=== PATIENT | female | born 1980 | race Caucasian/White ===

== ENCOUNTER 2016-08-28 15:54 | Emergency (ER) | payer OTHER ==
[~2016-08-28] VITALS: Ht 162.6 cm; Wt 66.6 kg
[~2016-08-28 15:54] MED LIST: ALBU1AER9 INH; CPR/500 PO; CYCL10TA6 PO; FLAGYL PO; HYOS1TAB PO; KETO10TA PO; NORETAB3 PO; NORT25CA PO; PNT250 PO; RANI300T2 PO
[2016-08-28 15:59] VITALS: TEMP 36.8; Ht 162.6 cm; Wt 66.6 kg
[2016-08-28] MEDS ORDERED: ONDANSETRON INJ 2 MG/ML 2 ML VIAL IV STA (16:22)
[2016-08-28] MEDS ORDERED: SODIUM CHLORIDE 0.9% 1000ML 1,000 ML IV STA (16:22)
[2016-08-28] MEDS ORDERED: KETOROLAC TROMETHAMINE 30 MG/ML VIAL IV STA (16:22)
[2016-08-28] MEDS ORDERED: IMT50 PO (16:52)
[2016-08-28] MEDS ORDERED: [UNRECOGNIZED DRUG - CODE] PO (16:52)
[2016-08-28] MEDS ORDERED: NRT/25 PO (16:52)
[2016-08-28] MEDS ORDERED: ACET-1256 PO (16:58)
[2016-08-28] MEDS ORDERED: IBUP-103 PO (16:58)
--- NOTE | 2016-08-28 17:02 | EMERGENCY ROOM VISIT NOTE ---
History Report prepared by Ciara: Kathleen Rosario Under the Supervision of: Dr. Marvin Soto M.D. First contact with patient: 16:18 Chief Complaint: LEG PAIN,LEG INJURY Stated Complaint: LT LEG PAIN, MIGRAINE- PHYSICIAN REFERRED History of Present Illness The patient is a 36 year old female who presents to the Emergency Room with complaints of persistent left leg pain starting a few days ago. She describes it as a soreness to the back of her leg. She has worsening pain with palpation. She did not have any recent trauma or injuries. She has not worked out for the past week. She drove an hour a few days but otherwise denies any recent long trips. The patient was referred to the Emergency Room by her OB-RN TRANSFER and PCP for concerns about blood clots. 4 days ago, she started having generalized body aches to her entire lower body. She also complains of a headache occurring for the past 4 days. The headache is located to her entire head but it is worse on the right side. She feels as though her "eye balls are pushing out of her head. " She has worsening pain with exposure to light. She has been applying ice without relief. She has been switching control pills for the past 18 months for migraine headaches. She has been taking Tylenol for her pain without relief. She reports a loss of appetite. She is a current smoker. She denies nausea, vomiting, or any other complaints. Source of History: patient Onset: a few days ago Position: leg (right) Timing: other (persistent) Modifying Factors (Worsening): other (palpation) Modifying Factors (Relieving): tylenol (without relief) Associated Symptoms: + headache, No nausea, No vomiting Review of Systems See HPI for pertinent positives & negatives. A total of 10 systems reviewed and were otherwise negative. Past Medical & Surgical Medical Problems: (1) Anxiety (2) Bronchitis (3) Crohns disease (4) Depression (5) GERD (gastroesophageal reflux disease) (6) Ulcer Family History Cancer FH: heart disease Social History Smoking Status: Current Some Day Smoker Alcohol Use: occasionally Housing Status: lives with family Current/Historical Medications Scheduled Levonorgestrel-Ethinyl Estradi (Levonorgestrel/Ethinyl Es 0.15-0.03 &0.01 mg), 1 TAB PO DAILY Nortriptyline Hcl (Pamelor), 50 MG PO HS Scheduled PRN Acetaminophen (Tylenol), 1,000 MG PO Q6H PRN for Pain or Fever Ibuprofen Tab (Advil), 400 MG PO Q6H PRN for Pain or Fever Sumatriptan Succinate (Sumatriptan Succinate), 25 MG PO UD PRN for Migraine Allergies Coded Allergies: Penicillins (Verified Allergy, Unknown, 08/28/16) Tetracycline (Verified Adverse Reaction, Unknown, nausea, 08/28/16) Physical Exam Vital Signs Date Time Temp Pulse Resp B/P (MAP) Pulse Ox O2 Delivery O2 Flow Rate FiO2 08/28/16 18:23 78 20 121/84 98 Room Air 08/28/16 16:47 74 20 134/91 99 Room Air 08/28/16 15:59 36.8 105 20 149/79 94 Room Air Physical Exam GENERAL: Patient is in no acute distress. HEENT: No acute trauma, normocephalic atraumatic, mucous membranes moist, no nasal congestion, no scleral icterus. Pupils are equal, round, and reactive to light. NECK: No stridor, no adenopathy, no meningismus, trachea is midline. LUNGS: Clear to auscultation bilaterally, no wheeze, no rhonchi, breath sounds equal. HEART: Without murmurs gallops or rubs, regular rate and rhythm. ABDOMEN: Soft, nontender, bowel sounds positive, no hernias, no peritonitis. EXTREMITIES: No cyanosis or edema, full range of motion of all the joints without pain or difficulty, no signs for acute trauma. NEUROLOGIC: Oriented x 3, no acute motor or sensory deficits, no focal weakness. No cerebellar dysfunction or pronator drift. SKIN: No rash, no jaundice, no diaphoresis. Medical Decision & Procedures ER Provider Diagnostic Interpretation: US results as stated below per my review and radiologist interpretation: LEFT LOWER EXTREMITY VENOUS DOPPLER CLINICAL HISTORY: Left leg pain. On control pills. COMPARISON STUDY: Bilateral lower extremity venous Doppler September 10, 2007. TECHNIQUE: Sonography of the deep venous system of the left lower extremity was performed. Compression and augmentation were evaluated. FINDINGS: The common femoral, superficial femoral and popliteal veins were compressible. Augmentation was normal. Flow was shown within the deep calf vessels. IMPRESSION: No evidence of deep venous thrombus within the left lower extremity. Electronically signed by: Lang Jiang M.D. 08/28/2016 5:45 PM Dictated Date/Time: 08/28/2016 5:44 PM Medications Administered Medications (Trade) Dose Ordered Sig/Melchor Route Start Time Stop Time Status Last Admin Dose Admin Sodium Chloride 1,000 ml @ 999 mls/hr Q1H1M STAT IV 08/28/16 16:22 08/28/16 17:22 DC 08/28/16 16:22 999 MLS/HR Ketorolac Tromethamine (Toradol Inj) 30 mg NOW STAT IV 08/28/16 16:22 08/28/16 16:26 DC 08/28/16 16:22 30 MG Ondansetron HCl (Zofran Inj) 4 mg NOW STAT IV 08/28/16 16:22 08/28/16 16:26 DC 08/28/16 16:22 4 MG Dexamethasone Sodium Phosphate (Decadron Inj) 10 mg NOW ONCE IV 08/28/16 18:00 08/28/16 18:01 DC 08/28/16 18:19 10 MG ED Course 1618: The patient was evaluated in room C11B. A complete history and physical exam was performed. 1622: Zofran Inj 4 mg IV, Toradol Inj 30 mg IV, Sodium Chloride 1000 ml @ 999 mls/hr IV 1753: I reevaluated the patient who continues to complain of her headache behind her right eye. She will try new medications and her will pick her up. I updated the patient on her findings. 1800: Decadron Inj 10 mg IV 1821: Reevaluated the patient. Discussed results and discharge instructions: She verbalized understanding and agreement. The patient is ready for discharge. Medical Decision Differential diagnosis includes but is not limited to migraine headache, tension headache, dehydration, DVT, muscle strain. The patient presents with a migraine which is mostly right-sided. She has been dealing with these migraines for months and her doctors have been changing her medications, in particular her control pills. She developed some pain in her left posterior thigh and was sent here for evaluation for possible DVT. She has never had a DVT. Left leg ultrasound shows no DVT, on exam, there was no significant edema to the left lower extremity. No cellulitis noted. The patient had a nonfocal neurologic exam, she was not febrile. She was not toxic, there was no meningismus. The patient received IV saline, IV Toradol. She felt better but still had some headache. She was given IV Decadron. The patient does not want anything further for pain. She will be driving herself home. The patient will follow with her family doctor and possibly neurology for her persistent headaches. She was reassured by the negative ultrasound. The left thigh pain is likely musculoskeletal. Impression Primary Impression: Left leg pain Additional Impression: Headache Scribe Attestation The scribe's documentation has been prepared under my direction and personally reviewed by me in its entirety. I confirm that the note above accurately reflects all work, treatment, procedures, and medical decision making performed by me. Departure Information Dispostion Home / Self-Care Referrals Yoly Hector M.D. (PCP) Forms HOME CARE DOCUMENTATION FORM, IMPORTANT VISIT INFORMATION Patient Instructions My [facility] Additional Instructions rest use benadryl tonight to help with sleep and the headache stay well hydrated talk with your doctor about seeing a neurologist return if worsening no clot today by ultrasound Problem Qualifiers
--- NOTE | 2016-08-28 17:46 | DIAGNOSTIC IMAGING REPORT ---
LEFT LOWER EXTREMITY VENOUS DOPPLER CLINICAL HISTORY: Left leg pain. On control pills. COMPARISON STUDY: Bilateral lower extremity venous Doppler September 10, 2007. TECHNIQUE: Sonography of the deep venous system of the left lower extremity was performed. Compression and augmentation were evaluated. FINDINGS: The common femoral, superficial femoral and popliteal veins were compressible. Augmentation was normal. Flow was shown within the deep calf vessels. IMPRESSION: No evidence of deep venous thrombus within the left lower extremity. Electronically signed by: Lang Jiang M.D. 08/28/2016 5:45 PM Dictated Date/Time: 08/28/2016 5:44 PM
[2016-08-28] MEDS ORDERED: PROCHLORPERAZINE 5 MG/ML 2 ML VIAL IV STA (17:53)
[2016-08-28] MEDS ORDERED: DiphenhydrAMINE HCL 50 MG/ML VIAL IV STA (17:53)
[2016-08-28] MEDS ORDERED: DEXAMETHASONE SOD INJ 10 MG/ML VIAL IV ONE (18:00)
[2016-08-28 18:23] VITALS: BP 121/84; PULSE 78; O2SAT 98
== END 2016-08-28 18:32 | disposition home or self-care (01) ==
LOC: C.EDB 15:56 → C.EDC 18:32
DX: M79.605 Pain in left leg (principal); R51 Headache; F17.200 Nicotine dependence, unspecified, uncomplicated; Z79.3 Long term (current) use of hormonal contraceptives; F41.9 Anxiety disorder, unspecified; F32.9 Major depressive disorder, single episode, unspecified; K50.90 Crohn's disease, unspecified, without complications; K21.9 Gastro-esophageal reflux disease without esophagitis